=== PATIENT | female | born 1955 | race Caucasian/White ===

== ENCOUNTER 2016-04-05 08:13 | Emergency (ER) | payer OTHER ==
--- NOTE | 2016-04-05 08:54 | ED THROAT/DENTAL COMPLAINT ---
History of Present Illness General Chief Complaint: Sore Throat, Dental Pain Stated Complaint: DENTAL PAIN, DIFFICULTY SWALLOWING Source: patient Exam Limitations: no limitations Vital Signs & Intake/Output Vital Signs & Intake/Output Vital Signs Date Time Temp Pulse Resp B/P Pulse O2 O2 Flow FiO2 Ox Delivery Rate 04/05 1243 98.8 91 18 141/87 97 Room Air 04/05 0821 98.7 100 20 150/98 98 Room Air Allergies Coded Allergies: No Known Allergies (04/05/16) Triage Note: PER PT HX OF TMJ, STARTED YESTERDAY WITH SWELLING TO NECK, UNDER CHIN AND BOTTOM OF MOUTH. TOOK 3 MOTRIN AT 0600 Triage Nurses Notes Reviewed? yes HPI: Patient is a 60-year-old female presents complaining of swelling underneath her chin that began yesterday. Patient reports that she has been having left lower dental pain for a couple of days noticed swelling yesterday. Swelling has increased over the past 24 hours. Patient was having difficulty swallowing this morning, took Advil with mild improvement. Pain was moderate to severe, is currently mild. Positive associated chills. Patient denies dyspnea, fevers. (NEFTALI DE) Reconcile Medications Amoxicillin/Potassium Clav (Augmentin 875-125 Tablet) 875 MG-125 MG TABLET 1 TAB PO BID dental infection Ondansetron (Zofran Odt) 4 MG TAB.RAPDIS 1 TAB SL TID PRN nausea Oxycodone HCl/Acetaminophen (Percocet 5-325 MG Tablet) 5 MG-325 MG TABLET 1 TAB PO Q6H PRN PAIN (ALY CARDONA,SABRINA) Past History Travel History Traveled to [place] past 21 day No Medical History Any Pertinent Medical History? see below for history Neurological: TMJ EENT: NONE Cardiovascular: NONE Respiratory: SEASONAL Gastrointestinal: NONE Hepatic: NONE Renal: NONE Musculoskeletal: NONE Psychiatric: NONE Endocrine: NONE Surgical History Surgical History: non-contributory Psychosocial History What is your primary language Urdu Tobacco Use: Never used Family History Hx Contributory? No (NEFTALI DE) Review of Systems Review of Systems Constitutional: Denies: chills, fever. EENTM: Reports: mouth pain, tooth pain. Respiratory: Denies: cough, short of breath. Cardiovascular: Denies: chest pain. GI: Denies: abdominal pain. Genitourinary: Reports: no symptoms. Musculoskeletal: Denies: back pain, neck pain. Skin: Reports: no symptoms. Neurological/Psychological: Reports: headache. Hematologic/Endocrine: Reports: no symptoms. Immunologic/Allergic: Reports: no symptoms. (NEFTALI DE) Physical Exam Physical Exam General Appearance: well developed/nourished, alert, awake Head: atraumatic, normal appearance Eyes: Bilateral: normal appearance, PERRL, EOMI. Ears: Bilateral: canal normal, Tympanic normal. Nose: normal inspection Mouth/Throat: mild sublingual edema. tenderness left inferior molars. No gingival erythema or tenderness. Submandibular swelling extending into the proximal neck. Neck: supple, full range of motion, swelling submandibular extending into neck Cardiovascular/Respiratory: normal breath sounds, regular rate/rhythm, no respiratory distress Back: normal inspection, normal range of motion Neurologic/Psych: no motor/sensory deficits, awake, alert, oriented x 3, normal gait, normal mood/affect Skin: intact, normal color, warm/dry Core Measures ACS in differential dx? No Severe Sepsis Present: No Septic Shock Present: No (NEFTALI DE) Progress Differential Diagnosis: carious tooth, epiglottitis, Ludwigs angina, odontogenic abscess, cellulitis Plan of Care: Orders Procedure Date/time Status BLOOD CULTURE 04/05 901 Active LACTIC ACID 04/05 901 Complete CBC WITHOUT DIFFERENTIAL 04/05 901 Complete BASIC METABOLIC PANEL 04/05 901 Complete Laboratory Tests 04/05/16 1202: Lactic Acid Cancelled 04/05/16 0930: Anion Gap 15, Estimated GFR > 60, BUN/Creatinine Ratio 17.1, Glucose 107 H, Lactic Acid 1.3, Calcium 9.6, CBC w Diff MAN DIFF ORDERED, RBC 5.39, MCV 84.2, MCH 28.3, RDW 14.1, MPV 8.4, Gran % 85.1 H, Lymphocytes % 7.0 L, Monocytes % 7.4, Eosinophils % 0.2, Basophils % 0.3, Absolute Granulocytes 10.5 H, Absolute Lymphocytes 0.9 L, Absolute Monocytes 0.9 H, Absolute Eosinophils 0, Absolute Basophils 0, Platelet Estimate VERIFIED BY SMEAR, Normocytic RBCs VERIFIED, Normochromic RBCs VERIFIED, PUBS MCHC 33.6 Microbiology 04/05 1005 BLOOD: Blood Culture - RECD 04/05 0943 BLOOD: Blood Culture - RECD 1230: Discussed with Dr. Underwood: if patient not having difficulty swalling, nontoxic appearing then aircraft inspector instruct patient to return tomorrow for recheck. 1240: Discussed results with patient. Reports headache and chills currently. Rechecked temperature, 99.3 tympanic. Discussed with patient disposition, return tomorrow for recheck, and that if at any time the swelling increases, she develops a fever or swallowing is becoming worse then she needs to return to the ER immediately. (MARIFER REYES,NEFTALI) Diagnostic Imaging: Viewed by Me: CT Scan. Discussed w/RAD: CT Scan. Radiology Impression: PATIENT: ANN MOURA PRESENT AGE: 60 PATIENT ACCOUNT NO: [id number] : 54 LOCATION: [facility] ORDERING PHYSICIAN: NEFTALI REYES SERVICE DATE: 04/05/16 EXAM TYPE: CAT - CT NECK W IV CONTRAST EXAMINATION: CT NECK WITH CONTRAST CLINICAL INFORMATION: 60-year-old female with left lower dental tenderness and submandibular swelling. COMPARISON: None. TECHNIQUE: Multidetector CT imaging of the neck was performed using 0.625 mm collimation following intravenous administration of 95 mL of Optiray 320 nonionic contrast material. Axial images , and coronal and sagittal reformatted images, were generated and reviewed. DLP: 577 mGy-cm. FINDINGS: Parotid glands, submandibular glands, and thyroid gland are normal. The nasopharynx, oral cavity, tongue base, and tonsillar pillars are unremarkable. No contour abnormality or pathologic enhancement within the oral cavity. There are secretions within the left vallecula and piriform sinus without evidence of pathologic mucosal enhancement in these areas. The epiglottis and preepiglottic space are normal. The parapharyngeal fat planes are preserved. There are no fluid collections in the deep soft tissues. There is no prevertebral soft tissue swelling. Laryngeal structures normal. There are normal sized lymph nodes of the suprahyoid and infrahyoid neck without evidence of lymphadenopathy by size criteria. The visualized carotid and vertebral arteries opacify normally; venous structures are unremarkable. There is no thrombophlebitis. The visualized upper lobes are normal. There is periapical lucency around the left first mandibular molar resulting in focal loss of lingual cortex. There is no adjacent rim-enhancing abscess. However, mild soft tissue swelling with reticulation of subcutaneous tissue is seen adjacent to the left mandible. The visualized intracranial structures are normal. There is no extra-axial fluid collection. The mastoid air cells and middle ear cavities are clear. The paranasal sinuses are well aerated. The orbits, globes and retrobulbar fat planes are normal. 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 This is associated with 0.3 cm anterolisthesis at C3-C4 and and C4-C5. There is moderate disc degeneration and uncovertebral joint hypertrophy at C5-C6, and severe disc degenerative change (as well as uncovertebral joint hypertrophy) at C6-C7. 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 More specifically, there is periapical lucency around the left mandibular first molar without perimandibular abscess. However, soft tissue edema is present adjacent to the angle and body of the mandible, suggestive of cellulitis. DICTATED BY: KAYLIN HU MD DATE/TIME DICTATED:04/05/161203 NUMEROLOGIST:EMILY DATE/TIME TRANSCRIBED:04/05/161203 CONFIDENTIAL, DO NOT COPY WITHOUT APPROPRIATE AUTHORIZATION. <Electronically signed in Other Vendor System> SIGNED BY: KAYLIN HU MD 04/05/16 1223 (NEFTALI DE) Comments: Updated by microbiology of 2nd blood culture with Gram positive cocci possibly strep. Patient called and updated. She is feeling better but with continued pain. No fever/chills. Dentist reportedly wants to see her next week after antibiotics. Advised if increased pain, fever or chills she should return for IV antibiotics and hospitalization. (SABRINA LU MD) Departure Departure Disposition: HOME OR SELF CARE Condition: Stable Clinical Impression Primary Impression: Cellulitis of submandibular region Referrals: SEGUNDO CARDONA,NATE (PCP/Family) Additional Instructions: If you continue with any swelling and pain then return to the emergency department tomorrow for recheck. Return to the emergency department immediately if you develop a temperature of 100.3 or higher, increasing swelling, increasing pain, difficulty swallowing, or worsening of symptoms. Follow up with your dentist this week for further evaluation. Departure Forms: Customer Survey General Discharge Information Prescriptions: Current Visit Scripts Amoxicillin/Potassium Clav (Augmentin 875-125 Tablet) 1 TAB PO BID #20 TAB Ondansetron (Zofran Odt) 1 TAB SL TID PRN nausea #10 TAB (MARIFER REYES,NEFTALI)
[2016-04-05 09:47] LABS: ABSOLUTE BASOPHIL COUNT 0 /CUMM (0.0-0.2); ABSOLUTE EOSINOPHIL COUNT 0 /CUMM (0.0-0.7); ABSOLUTE GRANULOCYTE CT 10.5 /CUMM (1.4-6.5); ABSOLUTE LYMPH COUNT 0.9 /CUMM (1.2-3.4); ABSOLUTE MONOCYTE COUNT 0.9 /CUMM (0.10-0.60); BASOPHIL % 0.3 % (0.0-2.0); EOSINOPHIL % 0.2 % (0-5); GRANULOCYTE % 85.1 % (42.2-75.2); HEMATOCRIT 45.4 % (37-47); MEAN CORPUSCULAR HGB 28.3 PG (27.0-31.0); MEAN CORPUSCULAR HGB CONC 33.6 G/DL (33.0-37.0); MEAN CORPUSCULAR VOLUME 84.2 FL (81.0-99.0); MEAN PLATELET VOLUME 8.4 FL (7.4-10.4); PLATELET COUNT 262 /CUMM (130-400); RBC DISTRIBUTION WIDTH 14.1 % (11.5-14.5); RED BLOOD CELL CT 5.39 /CUMM (4.20-5.40); WHITE BLOOD CELL COUNT 12.3 /CUMM (4.8-10.8)
--- NOTE | 2016-04-05 12:23 | CT SCAN REPORT ---
EXAMINATION: CT NECK WITH CONTRAST CLINICAL INFORMATION: 60-year-old female with left lower dental tenderness and submandibular swelling. COMPARISON: None. TECHNIQUE: Multidetector CT imaging of the neck was performed using 0.625 mm collimation following intravenous administration of 95 mL of Optiray 320 nonionic contrast material. Axial images, and coronal and sagittal reformatted images, were generated and reviewed. DLP: 577 mGy-cm. FINDINGS: Parotid glands, submandibular glands, and thyroid gland are normal. The nasopharynx, oral cavity, tongue base, and tonsillar pillars are unremarkable. No contour abnormality or pathologic enhancement within the oral cavity. There are secretions within the left vallecula and piriform sinus without evidence of pathologic mucosal enhancement in these areas. The epiglottis and preepiglottic space are normal. The parapharyngeal fat planes are preserved. There are no fluid collections in the deep soft tissues. There is no prevertebral soft tissue swelling. Laryngeal structures normal. There are normal sized lymph nodes of the suprahyoid and infrahyoid neck without evidence of lymphadenopathy by size criteria. The visualized carotid and vertebral arteries opacify normally; venous structures are unremarkable. There is no thrombophlebitis. The visualized upper lobes are normal. There is periapical lucency around the left first mandibular molar resulting in focal loss of lingual cortex. There is no adjacent rim-enhancing abscess. However, mild soft tissue swelling with reticulation of subcutaneous tissue is seen adjacent to the left mandible. The visualized intracranial structures are normal. There is no extra-axial fluid collection. The mastoid air cells and middle ear cavities are clear. The paranasal sinuses are well aerated. The orbits, globes and retrobulbar fat planes are normal. 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 This is associated with 0.3 cm anterolisthesis at C3-C4 and and C4-C5. There is moderate disc degeneration and uncovertebral joint hypertrophy at C5-C6, and severe disc degenerative change (as well as uncovertebral joint hypertrophy) at C6-C7. 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 More specifically, there is periapical lucency around the left mandibular first molar without perimandibular abscess. However, soft tissue edema is present adjacent to the angle and body of the mandible, suggestive of cellulitis.
[2016-04-05] MEDS ORDERED: AUGMENTIN 875-1 EACH PO (12:39)
[2016-04-05 12:43] VITALS: BP 141/87
[2016-04-05] MEDS ORDERED: ZOFRAN ODT4 M1 SL (12:48)
[2016-04-06] MEDS ORDERED: PERCOCET 5-3251 EACH PO (15:59)
== END 2016-04-05 12:40 ==
LOC: ERH 08:13
PROVIDERS: Physician Assistant
DX: K12.2 Cellulitis and abscess of mouth (principal)
CPT/HCPCS: 87040; 87147; 96374; 96375; J1885; J2405

== ENCOUNTER 2016-04-06 14:06 | Emergency (ER) | payer OTHER ==
[~2016-04-06] VITALS: Ht 167.6 cm; Wt 80.7 kg
[~2016-04-06 14:06] MED LIST: AUGMENTIN 875-1 EACH PO; ZOFRAN ODT4 M1 SL
[2016-04-06 14:31] VITALS: BP 137/92
[2016-04-06 14:54] LABS: ABSOLUTE BASOPHIL COUNT 0.1 /CUMM (0.0-0.2); ABSOLUTE EOSINOPHIL COUNT 0 /CUMM (0.0-0.7); ABSOLUTE GRANULOCYTE CT 8.5 /CUMM (1.4-6.5); ABSOLUTE LYMPH COUNT 1.7 /CUMM (1.2-3.4); BASOPHIL % 1.3 % (0.0-2.0); EOSINOPHIL % 0.3 % (0-5); GRANULOCYTE % 74.5 % (42.2-75.2); HEMATOCRIT 44.9 % (37-47); MEAN CORPUSCULAR HGB 28.2 PG (27.0-31.0); MEAN CORPUSCULAR VOLUME 85.4 FL (81.0-99.0); MEAN PLATELET VOLUME 8.4 FL (7.4-10.4); PLATELET COUNT 261 /CUMM (130-400); RBC DISTRIBUTION WIDTH 14.1 % (11.5-14.5); RED BLOOD CELL CT 5.26 /CUMM (4.20-5.40); WHITE BLOOD CELL COUNT 11.4 /CUMM (4.8-10.8)
--- NOTE | 2016-04-06 15:29 | ED GENERAL ADULT ---
History of Present Illness General Chief Complaint: General Adult Stated Complaint: CALLED BACK IN FOR STAPH INFECTION Vital Signs & Intake/Output Vital Signs & Intake/Output Vital Signs Date Time Temp Pulse Resp B/P Pulse O2 O2 Flow FiO2 Ox Delivery Rate 04/06 1431 98.1 93 16 137/92 94 Room Air Allergies Coded Allergies: No Known Allergies (04/05/16) Reconcile Medications Amoxicillin/Potassium Clav (Augmentin 875-125 Tablet) 875 MG-125 MG TABLET 1 TAB PO BID dental infection Ondansetron (Zofran Odt) 4 MG TAB.RAPDIS 1 TAB SL TID PRN nausea Triage Note: PT WAS CALLED BACK FOR + BC FROM YESTERDAY. PT STATES SHE ISN'T FEELING ANY BETTER. PT STATES HER TOOTH HURTS MORE. Past History Travel History Traveled to [place] past 21 day No Medical History Neurological: TMJ EENT: NONE Cardiovascular: NONE Respiratory: SEASONAL Gastrointestinal: NONE Hepatic: NONE Renal: NONE Musculoskeletal: NONE Psychiatric: NONE Endocrine: NONE Surgical History Surgical History: non-contributory Psychosocial History What is your primary language Faroese Tobacco Use: Never used ETOH Use: occasional use Illicit Drug Use: denies illicit drug use Progress Plan of Care: Orders Procedure Date/time Status BLOOD CULTURE 04/06 1445 Active COMPREHENSIVE METABOLIC PANEL 04/06 1415 Complete CBC WITHOUT DIFFERENTIAL 04/06 1415 Complete Laboratory Tests 04/06/16 1445: Anion Gap 12, Estimated GFR > 60, BUN/Creatinine Ratio 18.6, Glucose 97, Calcium 9.7, Total Bilirubin 0.9, AST 16, ALT 33, Alkaline Phosphatase 88, Total Protein 7.4, Albumin 4.3, Globulin 3.1, Albumin/Globulin Ratio 1.4, CBC w Diff NO MAN DIFF REQ, RBC 5.26, MCV 85.4, MCH 28.2, RDW 14.1, MPV 8.4, Gran % 74.5, Lymphocytes % 14.7 L, Monocytes % 9.2, Eosinophils % 0.3, Basophils % 1.3, Absolute Granulocytes 8.5 H, Absolute Lymphocytes 1.7, Absolute Monocytes 1.0 H, Absolute Eosinophils 0, Absolute Basophils 0.1, PUBS MCHC 33.0 Microbiology 04/06 1444 BLOOD: Blood Culture - RECD Departure Departure Condition: Stable Referrals: SEGUNDO CARDONA,NATE (PCP/Family) Departure Forms: Customer Survey General Discharge Information
--- NOTE | 2016-04-06 15:43 | ED GENERAL ADULT ---
History of Present Illness General Chief Complaint: General Adult Stated Complaint: CALLED BACK IN FOR STAPH INFECTION Source: patient, old records Exam Limitations: no limitations Vital Signs & Intake/Output Vital Signs & Intake/Output Vital Signs Date Time Temp Pulse Resp B/P Pulse O2 O2 Flow FiO2 Ox Delivery Rate 04/06 1431 98.1 93 16 137/92 94 Room Air ED Intake and Output 04/07 0000 04/06 1200 Intake Total 0 Output Total Balance 0 Intake, Oral 0 Patient 178 lb Weight Allergies Coded Allergies: No Known Allergies (04/05/16) Reconcile Medications Amoxicillin/Potassium Clav (Augmentin 875-125 Tablet) 875 MG-125 MG TABLET 1 TAB PO BID dental infection Ondansetron (Zofran Odt) 4 MG TAB.RAPDIS 1 TAB SL TID PRN nausea Oxycodone HCl/Acetaminophen (Percocet 5-325 MG Tablet) 5 MG-325 MG TABLET 1 TAB PO Q6H PRN PAIN Triage Note: PT WAS CALLED BACK FOR + BC FROM YESTERDAY. PT STATES SHE ISN'T FEELING ANY BETTER. PT STATES HER TOOTH HURTS MORE. Triage Nurses Notes Reviewed? yes HPI: Patient is a 60-year-old female presents for recheck of a left submandibular infection. Patient seen in the emergency department yesterday, had CT scan, IV antibiotics, labs and discharged home on Augmentin. Patient reports that she has taken 2 doses of the Augmentin and is feeling slightly improved. Swelling is gradually improving. Patient was called today to come back to the emergency department due to one bottle of the blood cultures growing gram-positive cocci. Patient reports headache and pain is moderate. Denies fevers, inability to swallow saliva or liquids dyspnea. (NEFTALI DE) Past History Travel History Traveled to [place] past 21 day No Medical History Any Pertinent Medical History? see below for history Neurological: TMJ EENT: NONE Cardiovascular: NONE Respiratory: SEASONAL Gastrointestinal: NONE Hepatic: NONE Renal: NONE Musculoskeletal: NONE Psychiatric: NONE Endocrine: NONE Surgical History Surgical History: non-contributory Psychosocial History What is your primary language French Tobacco Use: Never used ETOH Use: occasional use Illicit Drug Use: denies illicit drug use Family History Hx Contributory? No (NEFTALI DE) Review of Systems Review of Systems Constitutional: Reports: chills. Denies: fever. EENTM: Reports: mouth pain, tooth pain. Respiratory: Denies: cough, short of breath. Cardiovascular: Denies: chest pain. GI: Reports: nausea (yesterday, none today). Denies: abdominal pain. Musculoskeletal: Denies: back pain, neck pain. Skin: Denies: rash. Neurological/Psychological: Reports: headache. Hematologic/Endocrine: Denies: bruising, bleeding. Immunologic/Allergic: Denies: splenectomy. (NEFTALI DE) Physical Exam Physical Exam General Appearance: well developed/nourished, alert, awake Head: left submandibular swelling, with tenderness Eyes: Bilateral: normal appearance, PERRL, EOMI. Ears, Nose, Throat: normal ENT inspection, hearing grossly normal, tenderness left lower 1st molar Neck: supple, full range of motion Respiratory: normal breath sounds, chest non-tender, no respiratory distress, lungs clear Cardiovascular: regular rate/rhythm Back: normal inspection, normal range of motion Extremities: normal inspection, normal capillary refill, normal range of motion Neurologic/Psych: no motor/sensory deficits, awake, alert, oriented x 3, normal gait, normal mood/affect Skin: intact, normal color, warm/dry Lymphatic: no anterior cervical dao Core Measures ACS in differential dx? No CVA/TIA Diagnosis: No Severe Sepsis Present: No Septic Shock Present: No (NEFATLI ED) Progress Differential Diagnoses I considered the following diagnoses in my evaluation of the patient: cellulitis , megan's angina, abscess, airway obstruction Plan of Care: Orders Procedure Date/time Status BLOOD CULTURE 04/06 1552 Active BLOOD CULTURE 04/06 1445 Active COMPREHENSIVE METABOLIC PANEL 04/06 1415 Complete CBC WITHOUT DIFFERENTIAL 04/06 1415 Complete Laboratory Tests 04/06/16 1445: Anion Gap 12, Estimated GFR > 60, BUN/Creatinine Ratio 18.6, Glucose 97, Calcium 9.7, Total Bilirubin 0.9, AST 16, ALT 33, Alkaline Phosphatase 88, Total Protein 7.4, Albumin 4.3, Globulin 3.1, Albumin/Globulin Ratio 1.4, CBC w Diff NO MAN DIFF REQ, RBC 5.26, MCV 85.4, MCH 28.2, RDW 14.1, MPV 8.4, Gran % 74.5, Lymphocytes % 14.7 L, Monocytes % 9.2, Eosinophils % 0.3, Basophils % 1.3, Absolute Granulocytes 8.5 H, Absolute Lymphocytes 1.7, Absolute Monocytes 1.0 H, Absolute Eosinophils 0, Absolute Basophils 0.1, PUBS MCHC 33.0 Microbiology 04/06 1610 BLOOD: Blood Culture - RECD 04/06 1444 BLOOD: Blood Culture - RECD Discussed with and seen by Dr. Hodgson. White blood cell count improving, patient afebrile, nontoxic appearing. Swelling gradually improving from my exam from yesterday. Blood cultures repeated. I suspect that the one positive blood culture may be a skin contaminant. Patient appears stable for discharge at this time, instructed to return immediately if any fevers, increasing swelling, or worsening of symptoms. (NEFTALI DE) Initial ED EKG: none (NEFTALI DE) Departure Departure Time of Disposition: 1556 Disposition: HOME OR SELF CARE Condition: Stable Clinical Impression Primary Impression: Cellulitis of submandibular region Referrals: SEGUNDO CARDONA,NATE (PCP/Family) Additional Instructions: Continue taking the Augmentin as previously directed. Return to the ER immediately if fevers, increasing swelling, difficulty swallowing or worsening of symptoms. Follow up with your dentist within 1 week for further evaluation. Departure Forms: Customer Survey General Discharge Information Prescriptions: Current Visit Scripts Oxycodone HCl/Acetaminophen (Percocet 5-325 MG Tablet) 1 TAB PO Q6H PRN PAIN #10 TAB (NEFTALI DE) PA/PLUMBING SERVICE TECHNICIAN Co-Sign Statement Statement: ED Attending supervision documentation- [X] I saw and evaluated the patient. I have also reviewed all the pertinent lab results and diagnostic results. I agree with the findings and the plan of care as documented in the PA's/PLUMBING SERVICE TECHNICIAN's documentation. [X] I have reviewed the ED Record and agree with the PA's/PLUMBING SERVICE TECHNICIAN's documentation. [] Additions or exceptions (if any) to the PAs/PLUMBING SERVICE TECHNICIAN's note and plan are summarized below: [] (ERICK CARDONA,CARLOS) Critical Care Note Critical Care Note Critical Care Time: non-applicable (NEFTALI DE)
[2016-04-06] MEDS ORDERED: PERCOCET 5-3251 EACH PO (15:59)
== END 2016-04-06 16:22 ==
LOC: ERH 14:06
PROVIDERS: Emergency Medicine
DX: Z48.01 Encounter for change or removal of surgical wound dressing (principal)
CPT/HCPCS: 87040; 99281